=== PATIENT | male | born 1955 | race Caucasian/White ===

== ENCOUNTER → 2019-03-21 | Outpatient (CLI) | payer BC ==
--- NOTE | 2019-03-21 11:35 | US ---
EXAMINATION TYPE: US thyroid st tissue head/neck DATE OF EXAM: 03/21/2019 COMPARISON: NONE CLINICAL HISTORY: E03.9 HYPOTHYROIDISM. Had been on thyroid medication since he was 13yrs old, states he "has no thyroid tissue any more", thyroid labs have recently increased. GLAND SIZE: Unable to discern any thyroid tissue after years of being on medication NODULES RIGHT: # of nodules measured on right: 0 LEFT: # of nodules measured on left: 0 ISTHMUS: # of nodules measured in the isthmus: 0 Bilateral neck scanned, no evidence of lymphadenopathy. IMPRESSION: Extreme atrophy of the thyroid gland with no definitive measurable thyroid tissue remaini ng. Slightly heterogenous tissue is seen in the expected location of the thyroid bed, likely residual diminutive atrophic thyroid tissue from chronic thyroiditis and pharmacologic treatment.
== END | disposition home or self-care (01) ==
LOC: RADUSWWP 10:42
PROVIDERS: ATTEND Family Medicine
DX: E03.4 Atrophy of thyroid (acquired) (principal); E03.9 Hypothyroidism, unspecified
CPT/HCPCS: 76536

== ENCOUNTER → 2019-11-16 | Outpatient (CLI) | payer BC ==
--- NOTE | 2019-11-17 11:06 | NM ---
EXAMINATION TYPE: NM hepatobiliary w EF DATE OF EXAM: 11/16/2019 COMPARISON: NONE HISTORY: Right upper quadrant pain TECHNIQUE: After the intravenous administration of 5 mCi Tc 99m Mebrofenin hepatobiliary scintigraphy is performed. Immediate images post injection. FINDINGS: There is satisfactory initial accumulation of tracer by the liver. The gallbladder is visualized wit hin 75 minutes. The small bowel activity is noted within 8 minutes. At one hour 8 ounces of oral en sure plus is given to mimic CCK and gallbladder ejection fraction is calculated at 12 %, below normal range. Therefore there is no scintigraphic evidence of cystic or common bile duct obstruction to katz ggest acute cholecystitis. IMPRESSION: Delayed visualization of the gallbladder with abnormal low gallbladder ejection fraction.
== END | disposition home or self-care (01) ==
LOC: RADNMMAIN 14:55
PROVIDERS: ATTEND Family Medicine
DX: R93.2 Abnormal findings on diagnostic imaging of liver and biliary tract (principal)
CPT/HCPCS: 78226; A9537

== ENCOUNTER → 2023-08-30 | Outpatient (CLI) | payer OTHER ==
--- NOTE | 2023-09-06 12:14 | CT ---
EXAMINATION TYPE: CT sinus wo con CT DLP: 589 mGycm, Automated exposure control for dose reduction was used. DATE OF EXAM: 08/30/2023 9:51 AM COMPARISON: None. CLINICAL INDICATION:Male, 68 years old with history of J01.00 sinusitis; , chronic sinusitis TECHNIQUE: Multiple thin axial images were obtained through the paranasal sinuses without the use of IV contrast. Additional coronal and sagittal reformatted images were submitted for evaluation. Contrast used: none Oral contrast used: none FINDINGS: Frontal sinuses: Normally developed and aerated. Frontal Recess: Clear Maxillary Sinuses: Normally developed. The left maxillary sinus is clear. There are frothy secretions throughout the majority of the right maxillary sinus and some mucosal thickening inferiorly. Maxillary Infundibula(OMC): Left OMC is patent. Right OMC is narrowed and partially occluded by soft tissue density. Ethmoid sinuses: Normally developed and aerated. Ethmoidal notch: Protected and abutting the lateral lamina. Sphenoid sinuses: Normally developed and aerated. There is incomplete sellar sphenoid sinus pneumatiz ation without evidence of dehiscence. No dehiscence of carotid canal. Cavernous portion of the ICAs show mild to moderate calcification. No evidence of optic nerve dehiscence within the sphenoid sinus. Sphenoethmoidal recesses: Clear. Nasal septum: Mild nasal septal deviation towards the left posteriorly in its midportion with small o sseous spur at the level of the inferior middle turbinate.. Anteriorly there is mild deviation toward s the right. Nasal Turbinates: Within normal limits. Mastoid air cells & middle ears: Mastoid air cells are somewhat under pneumatized, especially the lef t. No significant effusion. The middle ears are grossly unremarkable. Modified Soft tissues & Brain: Included intracranial contents show no gross abnormality. Soft tissues show no significant abnormality. Orbits and globes are intact. There has likely been prior lens surg herb on the right. Tiny focus of calcification suggested along the posterior aspect of the left orbit, in the region of the retina/optic nerve junction; this could be correlated with ophthalmologic exam. Other: Cribriform plate demonstrates symmetric Keros classification type 2 cribriform plate. No evidence of bony dehiscence of skull base. There appears to be mild remote fracture deformity of the left lamina papyracea with thinning if not absence of the bone and slight protrusion of left intraorbital fat into the lateral aspect of the neal al passage. IMPRESSION: Soft tissue narrowing and partial occlusion of the right ostiomeatal unit, with frothy secretions thr oughout the majority of the right maxillary sinus and mild mucosal thickening inferiorly.
== END | disposition home or self-care (01) ==
LOC: RADCTMAIN 09:32
PROVIDERS: ATTEND Family Medicine
DX: J34.89 Other specified disorders of nose and nasal sinuses (principal)
CPT/HCPCS: 70486

== ENCOUNTER → 2023-09-21 | Outpatient (CLI) | payer OTHER ==
--- NOTE | 2023-09-21 16:47 | CA ---
Transthoracic Echo Report Name: Cristo Castillo Age: 68 Gender: M : 1955 Exam Date: 09/21/2023 15:27 Exam Location: [facility] Ht (in): 73 Wt (lb): 240 Ordering Physician: Coutrney Franks DO Attending/Referring Phys: Lolita Camarillo [facility] Policy Director Char Booker RDCS Procedure CPT: Indications: R01.1 cardiac murmur Cardiac Hx: Technical Quality: Fair Contrast 1: Total Dose (mL): Contrast 2: Total Dose (mL): MEASUREMENTS (Male / Female) Normal Values 2D ECHO LV Diastolic Diameter PLAX 4.5 cm 4.2 - 5.9 / 3.9 - 5.3 cm LV Systolic Diameter PLAX 2.8 cm IVS Diastolic Thickness 1.2 cm 0.6 - 1.0 / 0.6 - 0.9 cm LVPW Diastolic Thickness 1.2 cm 0.6 - 1.0 / 0.6 - 0.9 cm LV Relative Wall Thickness 0.5 RV Internal Dim ED PLAX 4.9 cm LVOT Diameter 1.9 cm LA Volume 54.9 cm??? 18 - 58 / 22 - 52 cm??? LA Volume Index 22.9 cm???/m??? 16 - 28 cm???/m??? M-MODE Aortic Root Diameter MM 3.9 cm LA Systolic Diameter MM 5.9 cm LA Ao Ratio MM 1.5 AV Cusp Separation MM 1.9 cm DOPPLER AV Peak Velocity 241.5 cm/s AV Peak Gradient 23.3 mmHg AV Mean Velocity 162.6 cm/s AV Mean Gradient 12.1 mmHg AV Velocity Time Integral 46.6 cm LVOT Peak Velocity 109.7 cm/s LVOT Peak Gradient 4.8 mmHg LVOT Velocity Time Integral 27.7 cm LVOT Stroke Volume 80.0 cm??? LVOT Stroke Volume Index 34.4 ml/m??? LVOT Cardiac Index 2403.1 cm???/min???m??? AV Area Cont Eq vti 1.7 cm??? AV Area Cont Eq pk 1.3 cm??? MV Peak Velocity 124.7 cm/s MV Peak Gradient 6.2 mmHg MV Mean Velocity 75.0 cm/s MV Mean Gradient 2.5 mmHg MV Velocity Time Integral 30.8 cm MV Area PHT 1.9 cm??? Mitral E Point Velocity 86.4 cm/s Mitral A Point Velocity 115.2 cm/s Mitral E to A Ratio 0.8 MV Deceleration Time 413.0 ms MV E' Velocity 6.1 cm/s Mitral E to MV E' Ratio 14.1 TR Peak Velocity 239.6 cm/s TR Peak Gradient 23.0 mmHg Right Ventricular Systolic Press 27.3 mmHg FINDINGS Left Ventricle Mildly increased left ventricular wall thickness. Left ventricular cavity size normal. Normal left ventricular systolic function with no obvious regional wall motion abnormalities. Left ventricular ejection fraction is estimated at 55-60 %. Grade 1 diastolic dysfunction. Right Ventricle Severe right ventricular dilatation. Right ventricular systolic pressure within normal limits. Right Atrium Normal right atrial size. Left Atrium Mildly increased left atrial area. Mitral Valve Structurally normal mitral valve. Mitral valve thickened. Mild mitral annular calcification. Mild mitral regurgitation. Aortic Valve Mild aortic stenosis with a peak gradient of 23 mmHg and a mean gradient of 12 mmHg. Trace aortic regurgitation. Tricuspid Valve Structurally normal tricuspid valve. Mild tricuspid stenosis. Pulmonic Valve Structurally normal pulmonic valve. Pericardium No pericardial effusion. Aorta Normal size aortic root and proximal ascending aorta. CONCLUSIONS Normal LV systolic function Mitral annular calcification with mild mitral regurgitation Mild aortic stenosis Mitral valve leaflet is thickened and redundant consider transesophageal echo if clinically indicated Dilated right ventricle Previewed by: Dr. Sidney Boland MD (Electronically Signed) Final Date: 21 September 2023 16:46
== END | disposition home or self-care (01) ==
LOC: RADECHMAIN 15:27
PROVIDERS: ATTEND Family Medicine
DX: I34.0 Nonrheumatic mitral (valve) insufficiency (principal); I35.0 Nonrheumatic aortic (valve) stenosis; I34.81 Nonrheumatic mitral (valve) annulus calcification; I34.89 Other nonrheumatic mitral valve disorders; R01.1 Cardiac murmur, unspecified; I51.7 Cardiomegaly
CPT/HCPCS: 93306